=== PATIENT | male | born 1965 | race Hispanic/Latino ===

== ENCOUNTER → 2018-01-08 | Outpatient (CLI) | payer BC ==
--- NOTE | 2018-01-08 17:22 | Diagnostic Imaging Report ---
PROCEDURE: Frontal and lateral views of the chest. COMPARISON: Patients [facility], , CHEST 2 VIEWS, 09/01/2016, 16:13. INDICATIONS: POSITIVE TUBERCULIN SKIN TEST FINDINGS: Lines/tubes: None. Lungs: The lungs are well inflated and clear. There is no evidence of pneumonia or pulmonary edema. Pleura: There is no pleural effusion or pneumothorax. Heart and mediastinum: Enlarged cardiac silhouette. Pulmonary vasculature is normal. No adenopathy. Bones: No acute bony abnormality. IMPRESSION: 1. enlarged cardiac silhouette, without acute cardiopulmonary abnormalities. No radiographic evidence of active TB. Austin Lewis M.D. Dictated by: Austin Lewis M.D. on 01/08/2018 at 17:25 Electronically approved by: Austin Lewis M.D. on 01/08/2018 at 17:25
== END ==
LOC: RAD 16:36
PROVIDERS: ATTEND Student in an Organized Health Care Education/Training Program
DX: R76.11 Nonspecific reaction to tuberculin skin test without active tuberculosis (principal); M06.9 Rheumatoid arthritis, unspecified; M19.90 Unspecified osteoarthritis, unspecified site; Z79.899 Other long term (current) drug therapy
CPT/HCPCS: 71046

== ENCOUNTER 2019-02-28 19:21 | Observation (INO) | payer BC ==
[~2019-02-28] VITALS: Ht 157.5 cm; Wt 68.0 kg
--- OUTSIDE RECORDS SUMMARY | 2019-02-28 19:26 | XMS REPORT ---
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 Allergies, Adverse Reactions, Alerts This patient has no known allergies or adverse reactions. Medications This patient has no known medications. Results Test Description Test Time Test Comments Text Results Atomic Results Result Comments CHEST 2 VIEWS [place] [address] Patient Name: MONIKA MCCLURE MR #: [id number] : 1965 Age/Sex: 52/M Req #: [id number] Adm Physician: Ordered by: TRACIE GAITAN Report #: [id number] Location: [facility] Room/Bed: Procedure: [id number] DX/CHEST 2 VIEWS Exam Date: Exam Time: REPORT STATUS: Signed PROCEDURE: Frontal and lateral views of the chest. COMPARISON: [facility], DX, CHEST 2 VIEWS, 09/01/2016, 16:13. INDICATIONS: POSITIVE TUBERCULIN SKIN TEST FINDINGS: Lines/tubes: None. Lungs: The lungs are well inflated and clear. There is no evidence of pneumonia or pulmonary edema. Pleura: There is no pleural effusion or pneumothorax. Heart and mediastinum: Enlarged cardiac silhouette. Pulmonary vasculature is normal. No adenopathy. Bones: No acute bony abnormality. IMPRESSION: 1. enlarged cardiac silhouette, without acute cardiopulmonary abnormalities. No radiographic evidence of active TB. Keven Ruiz M.D. Dictated by: Keven Ruiz M.D. on 01/08/2018 at 17:25 Electronically approved by: Keven Ruiz M.D. on 01/08/2018 at 17:25 Dictated By: KEVEN RUIZ MD 172 Transcribed By: JOSE RAFAEL on 01/08/18 1725 COPY TO: TRACIE GAITAN
[2019-02-28] MEDS ORDERED: DIATRIZOATE MEGL/DIATRIZOA SOD 30 ML BTL PO ONE (20:33)
[2019-02-28 20:51] LABS: BILIRUBIN,URINE NEGATIVE (NEGATIVE); CLARITY,URINE SL CLOUDY (CLEAR); COLOR,URINE YELLOW (YELLOW); KETONES,URINE NEGATIVE (NEGATIVE); LEUKOCYTE ESTERASE ,URINE NEGATIVE (NEGATIVE); NITRITE,URINE NEGATIVE (NEGATIVE); PROTEIN,URINE DIPSTICK NEGATIVE (NEGATIVE); URINE UROBILINOGEN 0.2 mg/dL (0.2 - 1)
[2019-02-28 20:55] LABS: BASOPHILS % 0.3 % (0.0-1.0); EOSINOPHILS % 0.2 % (0.0-6.0); HEMOGLOBIN 14.9 g/dL (14.0-18.0); LYMPHOCYTES # (AUTO) 1.1 (1.0-3.2); LYMPHOCYTES % 9.2 % (18.0-39.1); MEAN CORPUSCULAR HEMOGLOBIN 29.8 pg (28-32); MEAN CORPUSCULAR HGB CONC 33.9 g/dL (31-35); MONOCYTES # (AUTO) 0.7 (0.2-0.8); MONOCYTES % 5.4 % (4.4-11.3); NEUTROPHILS # (AUTO) 10.1 (2.1-6.9); NEUTROPHILS % 84.5 % (38.7-80.0); PLATELET COUNT 218 x10e3/uL (140-360); RED CELL DISTRIBUTION WIDTH 12.9 % (11.7-14.4)
[2019-02-28 21:09] LABS: ALANINE AMINOTRANSFERASE 25 IU/L (0-55); ALBUMIN/GLOBULIN RATIO 1.1 (0.8-2.0); ALKALINE PHOSPHATASE 91 IU/L (40-150); ANION GAP 14.2 mmol/L (8-16); BLOOD UREA NITROGEN 24 mg/dL (7-26); BUN/CREATININE RATIO 21 (6-25); CALCIUM 9.4 mg/dL (8.4-10.2); CARBON DIOXIDE 26 mmol/L (22-29); CHLORIDE 109 mmol/L (98-107); CREATININE, SERUM 1.16 mg/dL (0.72-1.25); EST GLOMERULAR FILTRATION RATE > 60 ML/MIN (60-); GLUCOSE 118 mg/dL (74-118); POTASSIUM 4.2 mmol/L (3.5-5.1); SODIUM 145 mmol/L (136-145)
[2019-02-28 21:09] LABS: BACTERIA,URINE MODERATE /HPF
[2019-02-28 21:40] LABS: AMYLASE 60 U/L (25-125); LIPASE 19 U/L (8-78)
[2019-02-28] MEDS ORDERED: IOPAMIDOL 370 MG/ML 200 ML INFUS..BTL INJ ONE (22:17)
[2019-02-28] MEDS ORDERED: SODIUM CHLORIDE 0.9% 50ML 50 ML ONE (22:17)
--- NOTE | 2019-02-28 22:20 | Diagnostic Imaging Report ---
EXAM: CT of the abdomen and pelvis WITH contrast HISTORY: Left lower quadrant pain, nausea, history of cholecystectomy and appendectomy COMPARISON: None available. TECHNIQUE: The abdomen and pelvis were scanned utilizing a multidetector helical scanner. Coronal and sagittal reformats are provided. PROTOCOL: Routine IV CONTRAST: 100 cc of Isovue-370. ORAL CONTRAST: Dilute Gastrografin RADIATION DOSE: Total DLP: 679.82 mGy*cm Estimated effective dose: (DLP x 0.015 x size factor) Dose modulation, iterative reconstruction, and/or weight based adjustment of the mA/kV was utilized to reduce the radiation dose to as low as reasonably achievable. COMPLICATIONS: None FINDINGS: LOWER THORAX: Bibasilar atelectasis. HEPATOBILIARY: Two hypodensities within the left lobe, statistically most likely small cyst. No biliary dilation. Metallic clips in the right upper quadrant of the abdomen are compatible with prior cholecystectomy. SPLEEN: No splenomegaly. PANCREAS: No focal masses or ductal dilatation. ADRENALS: No discrete adrenal nodule, please note volume averaging creates an artifact at the right adrenal nodule on the axial images. KIDNEYS/URETERS: No right hydronephrosis, stones, or definite solid mass lesions. A 7 mm proximal left ureteral stone with associated mild hydroureteronephrosis and perinephric fat stranding. PELVIC ORGANS/BLADDER: Nonspecific heterogeneity and coarse calcifications of the prostate. There are no bladder is partially decompressed. GI TRACT: No dilation or wall thickening identified. PERITONEUM / RETROPERITONEUM: No free air or fluid. LYMPH NODES: No pathologically enlarged lymph node. VESSELS: Unremarkable. BONES: No aggressive osseous lesion or acute fracture. SOFT TISSUES: Unremarkable. IMPRESSION: A 7 mm obstructing proximal left ureteral stone, mild associated hydroureteronephrosis. Signed by: Dr. Jermain Garnett D.O., M.M.M. on 02/28/2019 10:17 PM
[2019-02-28] MEDS ORDERED: ONDANSETRON HCL INJ 2MG/ML 2ML 2 MG/ML VIAL IV STA (22:29)
[2019-02-28] MEDS ORDERED: MORPHINE SULFATE INJ 4 MG/ML INJ 1ML IV ONE (22:30)
[2019-02-28] MEDS ORDERED: MORPHINE SULFATE INJ 4 MG/ML INJ 1ML IV PRN (23:00)
[2019-02-28] MEDS ORDERED: ONDANSETRON HCL INJ 2MG/ML 2ML 2 MG/ML VIAL IV PRN (23:00)
[2019-03-01] VITALS (9 sets, daily range): BP systolic 128–151; BP diastolic 75–87
[2019-03-01] MEDS: CEFTRIAXONE SOD 1 GM/NS 50 ML 50 ML IV SCH (01:26)
[2019-03-01] MEDS: SODIUM CHLORIDE 0.9% 1000ML 1,000 ML IV SCH ×2 (01:26→12:53)
--- NOTE | 2019-03-01 05:11 | NUR ---
PT IS TRANSFERRED FROM ER .PT IS AOX3 RESPIRATIONS ARE EVEN AND UNLABORED .SKIN WARM AND DRY TO TOUCH .PT C/O PAIN AT THE LEFT LOWER ABD .FAMILY AT THE BEDSIDE CALL LIGHT WITH IN REACH CONTINUE TO MONITOR
[2019-03-01 05:51] LABS: BASOPHILS % 0.4 % (0.0-1.0); EOSINOPHILS % 0.4 % (0.0-6.0); HEMATOCRIT 41.1 % (38.2-49.6); HEMOGLOBIN 13.5 g/dL (14.0-18.0); LYMPHOCYTES # (AUTO) 1.8 (1.0-3.2); LYMPHOCYTES % 18.7 % (18.0-39.1); MEAN CORPUSCULAR HEMOGLOBIN 28.8 pg (28-32); MEAN CORPUSCULAR HGB CONC 32.8 g/dL (31-35); MEAN CORPUSCULAR VOLUME 87.6 fL (81-99); MONOCYTES # (AUTO) 0.9 (0.2-0.8); MONOCYTES % 9.8 % (4.4-11.3); NEUTROPHILS # (AUTO) 6.8 (2.1-6.9); NEUTROPHILS % 70.4 % (38.7-80.0); PLATELET COUNT 190 x10e3/uL (140-360); RED BLOOD COUNT 4.69 x10e6/uL (4.3-5.7); RED CELL DISTRIBUTION WIDTH 12.9 % (11.7-14.4)
[2019-03-01 06:14] LABS: ALANINE AMINOTRANSFERASE 25 IU/L (0-55); ALBUMIN 3.4 g/dL (3.5-5.0); ALBUMIN/GLOBULIN RATIO 1.1 (0.8-2.0); ALKALINE PHOSPHATASE 86 IU/L (40-150); ANION GAP 11.8 mmol/L (8-16); BLOOD UREA NITROGEN 18 mg/dL (7-26); BUN/CREATININE RATIO 23 (6-25); CALCIUM 8.8 mg/dL (8.4-10.2); CARBON DIOXIDE 26 mmol/L (22-29); CHLORIDE 111 mmol/L (98-107); CREATININE, SERUM 0.78 mg/dL (0.72-1.25); EST GLOMERULAR FILTRATION RATE > 60 ML/MIN (60-); GLUCOSE 94 mg/dL (74-118); POTASSIUM 3.8 mmol/L (3.5-5.1); SODIUM 145 mmol/L (136-145)
--- NOTE | 2019-03-01 06:39 | NUR ---
PT C/O SWELLING AT THE LEFT SIDE OF THE FACE .NOTIFIED DR GANDHI . CAME AND SAW THE PT .ORDER TO APPLY THE FACE CALL LIGHT WITH IN REACH .CONTINUE TO MONITOR
--- NOTE | 2019-03-01 07:00 | NUR ---
RECEIVED REPORT FROM NURSE, MORNING ROUNDS DONE. PT IS SLEEPING COMFORTABLY, NO S/S OF DISTRESS. CALL LIGHT WITHIN REACH. SIDE RAILS UP. FAMILY MEMBER IS AT THE BEDSIDE
--- NOTE | 2019-03-01 07:06 | NUR ---
PT RESTING .CALL LIGHT WITH IN REACH .BEDSIDE REPORT GIVEN TO THE ONCOMING NURSE
[2019-03-01] MEDS ORDERED: IOPAMIDOL 610MG/1ML 300 MG/ML VIAL IV ONE (15:26)
--- NOTE | 2019-03-01 16:29 | NUR ---
pt left the unit for cysto retrograde pyelogram with left stent. pt in stable condition, left via stretcher with OR nurse
[2019-03-01] MEDS ORDERED: ONDANSETRON HCL INJ 2MG/ML 2ML 2 MG/ML VIAL ONE (18:05)
[2019-03-01] MEDS ORDERED: FENTANYL CITRATE/PF 100MCG/2 ML INJ ONE (18:05)
[2019-03-01] MEDS ORDERED: SEVOFLURANE INHAL SOLN 250 ML PEN BTL ONE (18:05)
[2019-03-01] MEDS ORDERED: PROPOFOL IV EMULSION 10 MG/ML 20 ML VIAL ONE (18:05)
[2019-03-01] MEDS ORDERED: LIDOCAINE HCL 2% LOCAL INJ 5 ML SDV VIAL INJ ONE (18:05)
[2019-03-01] MEDS ORDERED: DEXAMETHASONE SOD PHOS INJ 4 MG/ML VIAL ONE (18:05)
[2019-03-01] MEDS ORDERED: MIDAZOLAM HCL 2 MG/2 ML VIAL ONE (18:05)
--- NOTE | 2019-03-01 18:14 | NUR ---
received report from PACU. pt is s/p cysto/retro/pyelo with left stent placement. pt is stable vitals 132/77 hr 55 temp 97.0 and o2 sat 96% on room air. pt is due to void starting 1702.
--- NOTE | 2019-03-01 19:50 | NUR ---
PATIENT C/O PAIN TO THE PENIS WITH PAIN SCORE #5, MEDICATED WITH MORPHINE AND ZOFRAN ORDERED. URINE COLOR BLOODY, IT WAS STRAINED BUT NO STONES OBSERVED. CALL LIGHT WITHIN EASY REACH, PATIENT INSTRUCTED TO CALL FOR ASSISTANCE NEEDED.
--- NOTE | 2019-03-01 20:43 | Consultation ---
DATE OF CONSULTATION: 03/01/2019 Urologic Consultation Consultation called in by Dr. Chaudhari. CHIEF COMPLAINT/REASON FOR CONSULTATION: Ureteral calculus. HISTORY OF PRESENT ILLNESS: Mr. Patrick is a 53-year-old male with a history of acute sharp severe left-sided flank pain. He denied dysuria. Denied gross hematuria. PAST MEDICAL HISTORY: Notable for cholecystectomy. MEDICATIONS: Please see MAR. ALLERGIES: NKDA. SOCIAL HISTORY: Denied smoking or drinking. FAMILY HISTORY: Denied urologic stones or malignancies. REVIEW OF SYSTEMS: Noncontributory other than problems mentioned above for 12 organ systems. PHYSICAL EXAMINATION: GENERAL: Middle-aged male, in no acute distress. VITAL SIGNS: Currently, temperature 98, pulse 56, respirations 16, blood pressure 134/75. HEENT: Sclerae anicteric. NECK: Supple. BACK: Without costovertebral angle tenderness bilaterally. ABDOMEN: Soft. It is nontender. It is nondistended. There is no palpable mass. No palpable hernias. No palpable adenopathy. : Normal male external genitalia. EXTREMITIES: No edema. NEUROLOGIC: Moves all four extremities. PSYCH: Alert and appropriate. SKIN: Intact. Normal color. PERTINENT LABORATORY DATA: CT scan revealing a liver cyst on the left side, 7 mm left proximal ureteral stone with hydronephrosis. Hemoglobin 14, hematocrit 44, platelet count 318, 000, white cell count 11,370. Sodium 145, potassium 3.8, chloride 111, bicarb 26, BUN 18, creatinine 0.78, glucose 94. Urinalysis; 11-20 reds. IMPRESSION: 1. Left ureteral calculus. 2. Left hydronephrosis. 3. Leukocytosis. 4. Microscopic hematuria. 5. Left renal colic. 6. Hypertension. PLAN: 1. The patient will need stenting with leukocytosis and question of an infection. Discussed the fact the stent is a temporary indwelling device and it must be removed and failure to do so could lead to encrustation, infection, inflammation, atrophy, loss of the kidney and even . He elects to proceed. 2. Hypertension. Defer to the primary service. Thank you for allowing me to participate in the care of your patient. We will be happy to follow along with you. Santiago Gu MD ES/MODL /[id number] cc: Shiva Chaudhari MD
--- NOTE | 2019-03-01 23:19 | Operative Report ---
DATE OF PROCEDURE: 03/01/2019 SURGEON: Santiago Gu MD PREOPERATIVE DIAGNOSES: 1. Left hydronephrosis. 2. Left ureteral calculus. 3. Left renal colic. 4. Microscopic hematuria. POSTOPERATIVE DIAGNOSES: 1. Left hydronephrosis. 2. Left ureteral calculus. 3. Left renal colic. 4. Microscopic hematuria. PROCEDURES: 1. Cystourethroscopy with right ureteral catheterization and right retrograde pyelogram (separate procedure for the diagnosis of microscopic hematuria). 2. Cystourethroscopy with manipulation of left ureteral calculus (entirely separate procedure for manipulation left calculus). 3. with insertion of left ureteral stent (entirely separate procedure for hydronephrosis). ANESTHESIA: General. ESTIMATED BLOOD LOSS: Minimal. INDICATIONS: Mr. Patrick is a 53-year-old male with left ureteral calculus and hydronephrosis. He and I had a long discussion about alternatives, risks, and the benefits including doing nothing, stent placement, percutaneous surgery, and open surgery. He voiced understanding of the options, alternatives, the risks and benefits and he elected to proceed. PROCEDURE IN DETAIL: After informed consent was obtained, the patient was taken to the operative suite, placed supine on the operating table, underwent general anesthesia by Anesthesia Service. He was placed in the dorsal lithotomy position and sterilely prepped and draped in standard fashion for cystoscopy. A 21-Indian cystoscope was inserted per urethra. Normal urethra was noted. There was trilobar prostatic hypertrophy. Panendoscopy of the bladder revealed no tumor, no stones. Both ureteral orifices were catheterized with 5-Indian open-ended catheter. Retrograde pyelogram was performed on right and was normal. Left revealed a 6 x 6 proximal ureteral calculus. A guidewire the stone was manipulated into the proximal renal pelvis. A ureteral stent was deployed 6 x 24 cm with coil in the renal pelvis and coil in the bladder. The bladder was drained. The patient was awakened from anesthesia and transported to the recovery room in excellent condition. Supervision of fluoroscopy interpretation ventriculography: I was present for the entire procedure and supervised fluoroscopy. There was no radiologist present. Attention was turned towards the left and right ureteral orifice was catheterized with 5-Indian open-ended catheter and retrograde pyelogram was performed revealing delicate ureters distally in the left proximal 6 x 6 mm ureteral calculus with hydronephrosis. Postoperative views on the left side revealed stent in adequate position with the stone manipulated into renal pelvis. The bladder was drained. The patient was awakened from anesthesia and transported to the recovery room in excellent condition. MD DORITA Palacio/MODL /[id number]
[2019-03-02] VITALS: BP 112/65
[2019-03-02] MEDS: CEFTRIAXONE SOD 1 GM/NS 50 ML 50 ML IV SCH (00:31)
--- NOTE | 2019-03-02 00:37 | NUR ---
PATIENT ASLEEP, HE'S EASY TO AROUSE. NO RESPIRATORY DISTRESS OBSERVED, HE DENIES PAIN. CALL LIGHT WITHIN EASY REACH, HE'S INSTRUCTED TO CALL FOR ASSISTANCE NEEDED.
[2019-03-02] MEDS: SODIUM CHLORIDE 0.9% 1000ML 1,000 ML IV SCH (02:43)
--- NOTE | 2019-03-02 03:05 | NUR ---
PATIENT ASLEEP, HE'S EASY TO AROUSE. HE DENIES PAIN, CALL LIGHT AND URINAL WITHIN EASY REACH.
[2019-03-02 04:30] VITALS: BP 108/59
--- NOTE | 2019-03-02 07:00 | NUR ---
received am report from nurse, morning rounds done. pt is alert, resting in bed, no s/s of distress. call light within reach, pt has no complaints at this time
[2019-03-02 07:49] VITALS: BP 128/64
[2019-03-02 09:15] VITALS: BP 128/64
--- NOTE | 2019-03-02 11:21 | Discharge Summary ---
PRIMARY CARE DOCTOR: Dr. Prosper Ruano. FINAL DIAGNOSIS: Left nephrolithiasis with hydronephrosis. CONSULTANTS: Dr. Gu, Urology. PROCEDURES/STUDIES PERFORMED: 1. CT of the abdomen and pelvis. 2. Cysto with left ureteral stent placement. HISTORY: Per [facility]. HOSPITAL COURSE: The patient was found to have a 7 mm stone on the left side. The patient was empirically put on IV Rocephin. IV morphine was used for pain control. The patient underwent cysto with left ureteral stent placement. The patient should be able to go home later on today after evaluation by Dr. Gu. He will need to follow up with him in 1 to 2 weeks. The patient was seen and examined today. CONDITION ON DISCHARGE: Improved. DISCHARGE MEDICATIONS: Please see medication reconciliation form. MD AUSTIN Garcia/GUILLERMINA /[id number]
[2019-03-02 12:01] VITALS: BP 119/64
--- NOTE | 2019-03-02 12:48 | NUR ---
Dr. pena has cleared the patient to go home, dr Modi has previously put in discharge orders
== END 2019-03-02 14:02 | disposition home or self-care (01) ==
LOC: ER 19:21 → ERHOLD 22:50 → INTOOBSV 22:50 → MED/SURG3 03-01 03:31
PROVIDERS: ADMIT Internal Medicine; ATTEND Internal Medicine
DX: N13.2 Hydronephrosis with renal and ureteral calculous obstruction (principal); R31.29 Other microscopic hematuria; I10 Essential (primary) hypertension
CPT/HCPCS: 36415 ×2; 52330; 52332; 74177; 74420; 80053 ×2; 81001; 82150; 83690; 85025 ×2; 87086; 96376; 99284; C1758; C2617; G0378 ×3; J0696 ×2; J1100; J2001; J2250; J2270; J2405; J2704; J3010; J7030 ×2; Q9967 ×2; 96374

== ENCOUNTER → 2023-07-16 | Outpatient (REF) | payer BC | LOC: RAD 11:16 | PROVIDERS: ATTEND Internal Medicine Rheumatology | DX: M19.042 Primary osteoarthritis, left hand (principal); M19.041 Primary osteoarthritis, right hand; M19.072 Primary osteoarthritis, left ankle and foot; M19.071 Primary osteoarthritis, right ankle and foot; Z79.899 Other long term (current) drug therapy ==

== ENCOUNTER 2025-04-23 16:56 | Emergency (ER) | payer BC ==
[~2025-04-23] VITALS: Ht 157.5 cm; Wt 67.6 kg
[2025-04-23] MEDS: LIDOCAINE JELLY 2% 10ML URO-JET TOP ONE (18:11)
[2025-04-23 18:46] LABS: LEUKOCYTE ESTERASE ,URINE NEGATIVE (NEGATIVE); PROTEIN,URINE DIPSTICK NEGATIVE (NEGATIVE); URINE UROBILINOGEN 0.2 mg/dL (0.2 - 1)
[2025-04-23] MEDS ORDERED: PYRIDIUM100 MG PO (18:47)
[2025-04-23] MEDS ORDERED: CEFDINIR300 MG PO (18:47)
[2025-04-23 19:01] LABS: EPITHELIAL CELLS,URINE FEW /LPF; WBC,URINE (MAN) 0-5 /HPF (0-5)
[2025-04-23 19:25] VITALS: PULSE 77; RESP 18; TEMP 98; O2SAT 100
== END 2025-04-23 19:32 | disposition home or self-care (01) ==
LOC: ER 17:33
DX: R33.9 Retention of urine, unspecified (principal); C61 Malignant neoplasm of prostate
CPT/HCPCS: 51700; 81001; 87086; 99284

== ENCOUNTER 2025-04-24 14:12 | Emergency (ER) | payer BC ==
[~2025-04-24] VITALS: Ht 157.5 cm; Wt 67.6 kg
[~2025-04-24 14:12] MED LIST: CEFDINIR300 MG PO; PYRIDIUM100 MG PO
[2025-04-24 15:26] VITALS: PULSE 78; RESP 18; TEMP 98.6
[2025-04-24 16:08] VITALS: BP 136/74; PULSE 72; RESP 18; TEMP 97.4; O2SAT 95
== END 2025-04-24 16:10 | disposition home or self-care (01) ==
LOC: ER 15:13
DX: Z46.6 Encounter for fitting and adjustment of urinary device (principal); Z85.46 Personal history of malignant neoplasm of prostate
CPT/HCPCS: 99282